=== PATIENT | female | born 1990 | race Two or more races ===

== ENCOUNTER → 2017-06-17 | Outpatient (CLI) | payer OTHER ==
--- NOTE | 2017-06-17 10:54 | RAD ---
EXAM: Bilateral breast/axillary ultrasound. HISTORY: Right axillary pain and swelling. COMPARISON: None. FINDINGS: Sonographic evaluation of the right axillary region of pain/swelling was performed. Sonography of the left axilla was performed for comparison. Only normal subcutaneous and muscular tissues are seen. There are no pathologically enlarged lymph nodes. There is no mass or fluid collection. IMPRESSION: 1. No abnormalities identified. Recommend ongoing clinical follow-up of tenderness or swelling.
== END | disposition home or self-care (01) ==
LOC: US 10:11
PROVIDERS: ATTEND Physician Assistant Surgical
DX: R22.31 Localized swelling, mass and lump, right upper limb (principal)
CPT/HCPCS: 76641